=== PATIENT | female | born 1985 | race African-American/Black ===

== ENCOUNTER 2017-02-07 09:52 | Emergency (ER) | payer SELFPAY ==
[2017-02-07] MEDS ORDERED: ACET325T9 PO (10:09)
[2017-02-07] MEDS ORDERED: fentaNYL PF 100 MCG/2 ML VIAL IV PRN (10:45)
[2017-02-07] MEDS ORDERED: IV NORMAL SALINE 1,000ML 1,000 ML IV ONE (10:45)
--- NOTE | 2017-02-07 10:49 | ED.ADGEN ---
Past History Past Medical History: No Pertinent History Past Surgical History: Alcohol Use: None Drug Use: None Adult General HPI HPI Patient is a 31-year-old woman, history of , presents to the emergency department with a complaint of right-sided dental pain and swelling that began last night. Patient denies any fevers, any nausea or vomiting, states that she is unable to tolerate secretions due to pain, also unable over her mouth fully, states the pain is traveling to the entire right side of her face, no sore throat, no rhinorrhea, no ear pain. She did take ibuprofen at home for current the ED. Denies any sore throat, any ear pain, any rhinorrhea. Denies any injuries, any sick contacts or exposures. States that she does have her wisdom teeth and believes this is the source of the problem. Denies similar symptoms previously. States the pain is in both the upper and lower jaw and also the right side of her face. Review of Systems Review of Systems Constitutional: Denies fever or chills [] Eyes: Denies change in visual acuity, redness, or eye pain [] HENT: Denies nasal congestion or sore throat [] right-sided dental/facial pain. Respiratory: Denies cough or shortness of breath [] Cardiovascular: No additional information not addressed in HPI [] GI: Denies abdominal pain, nausea, vomiting, bloody stools or diarrhea [] : Denies dysuria or hematuria [] Musculoskeletal: Denies back pain or joint pain [] Integument: Denies rash or skin lesions [] Neurologic: Denies headache, focal weakness or sensory changes [] Endocrine: Denies polyuria or polydipsia [] Current Medications Current Medications Current Medications Medications (Trade) Dose Ordered Sig/Julissa Start Time Stop Time Status Last Admin Dose Admin Fentanyl Citrate (Fentanyl 2ml Vial) 25 mcg PRN Q15MIN PRN 02/07/17 10:45 02/08/17 10:44 02/07/17 11:27 25 MCG Penicillin V Potassium (Veetid) 500 mg 1X ONCE 02/07/17 12:00 02/07/17 12:01 DC Sodium Chloride 1,000 ml @ 1,000 mls/hr 1X ONCE 02/07/17 10:45 02/07/17 11:44 DC 02/07/17 11:25 1,000 MLS/HR Allergies Allergies Allergies Coded Allergies Type Severity Reaction Last Updated Verified No Known Drug Allergies 02/07/17 No Physical Exam Physical Exam Constitutional: Well developed, well nourished, no acute distress, non-toxic appearance. [] HENT: Normocephalic, atraumatic, bilateral external ears normal, oropharynx moist, no oral exudates, nose normal. Patient is being secretions into a cup, states she is having some bad taste in her mouth, but is unclear, tenderness throughout the upper and lower jaw, although no obvious caries or injury identified, patient with tenderness throughout, is only able to open mouth to 2 fingers, with trismus noted, there is no brawny edema, no swelling of the tongue , no swelling of the submandibular new mucosa, no external lymphadenopathy, patient with tenderness throughout the right cheek, no involvement of the maxillary sinuses. Eyes: PERRLA, EOMI, conjunctiva normal, no discharge. [] Neck: Normal range of motion, no tenderness, supple, no stridor. [] Cardiovascular:Heart rate regular rhythm, no murmur, S1, S2, no rubs or gallops. [] Lungs & Thorax: Bilateral breath sounds clear to auscultation , no wheezing, rhonchi, rales. No chest wall crepitus or tenderness. [] Abdomen: Bowel sounds normal, soft, no tenderness, no rebound, rigidity, no guarding, no masses, no pulsatile masses. [] Skin: Warm, dry, no erythema, no rash. [] Back: No tenderness, no CVA tenderness. [] Extremities: No tenderness, no cyanosis, no clubbing, ROM intact, no edema. [] Neurologic: Alert and oriented X 3, normal motor function, normal sensory function, no focal deficits noted. [] Psychologic: Affect normal, judgement normal, mood normal. [] Current Patient Data Vital Signs Vital Signs Date Time Temp Pulse Resp B/P (MAP) Pulse Ox O2 Delivery O2 Flow Rate FiO2 02/07/17 11:27 88 16 94 02/07/17 11:27 Room Air 02/07/17 09:52 97.9 Lab Results Laboratory Tests Test 02/07/17 10:25 02/07/17 10:45 POC Urine HCG, Qualitative hcg positive (Negative) White Blood Count 12.2 x10^3/uL (4.0-11.0) H Red Blood Count 4.02 x10^6/uL (3.50-5.40) Hemoglobin 11.9 g/dL (12.0-15.5) L Hematocrit 36.2 % (36.0-47.0) Mean Corpuscular Volume 90 fL (79-100) Mean Corpuscular Hemoglobin 30 pg (25-35) Mean Corpuscular Hemoglobin Concent 33 g/dL (31-37) Red Cell Distribution Width 15.1 % (11.5-14.5) H Platelet Count 261 x10^3/uL (140-400) Neutrophils (%) (Auto) 75 % (31-73) H Lymphocytes (%) (Auto) 17 % (24-48) L Monocytes (%) (Auto) 7 % (0-9) Eosinophils (%) (Auto) 1 % (0-3) Basophils (%) (Auto) 0 % (0-3) Neutrophils # (Auto) 9.2 x10^3uL (1.8-7.7) H Lymphocytes # (Auto) 2.1 x10^3/uL (1.0-4.8) Monocytes # (Auto) 0.9 x10^3/uL (0.0-1.1) Eosinophils # (Auto) 0.1 x10^3/uL (0.0-0.7) Basophils # (Auto) 0.0 x10^3/uL (0.0-0.2) Sodium Level 137 mmol/L (136-145) Potassium Level 3.8 mmol/L (3.5-5.1) Chloride Level 104 mmol/L (98-107) Carbon Dioxide Level 23 mmol/L (21-32) Anion Gap 10 (6-14) Blood Urea Nitrogen 5 mg/dL (7-20) L Creatinine 0.8 mg/dL (0.6-1.0) Estimated GFR (Cockcroft-Gault) 84.8 Glucose Level 101 mg/dL (70-99) H Calcium Level 9.7 mg/dL (8.5-10.1) EKG EKG Not indicated. [] Radiology/Procedures Radiology/Procedures [] Course & Med Decision Making Course & Med Decision Making Pertinent Labs and Imaging studies reviewed. (See chart for details) Patient states her last mental period was in September of this year, states she has had regular menses. Patient's hCG urine was positive in the emergency department. I did discuss this with patient, she states that she is "not not surprised" by this finding, and denies any discharge, drainage, abdominal pain, or other related concerns, she does not currently have an [employer] ASS[employer] and is not taking vitamins. Patient with inability to swallow secretions she states due to some pain, unable to open mouth more than one half fingers for examination, cries on examination, concern for possible sialadenitis, versus possible abscess with difficult examination.. I did discuss this with patient, she is agreeable to receiving laboratory studies, pain medication, and imaging in the emergency department to further elucidate her symptoms. CT of the face does not reveal any evidence of stone or abscess, I did discuss with patient who is resting calmly, telemetry studies early acute concerning findings. Patient noted to have likely bone island in the right jaw, discussed with the patient's require further evaluation to rule out any more concerning causes. Patient voices understanding. She states she will be able to establish insurance next week, in the meantime, I patient is given a list of available clinics with whom she can follow additional evaluation. Also covered with oral antibiotics although I did not visualize abscess formation or anything on CT, secondary to patient's symptoms and discomfort. Patient voiced understanding and agreement with plan as stated, discharged home in stable condition after seeing first dose of Biaxin ED without issue. Also given prescription for vitamins and list of available [employer] [facility] providers. Final Impression Final Impression [] Problems: Dragon Disclaimer Dragon Disclaimer This electronic medical record was generated, in whole or in part, using a voice recognition dictation system. Departure: Impression: Primary Impression: Pain, dental Disposition: HOME, SELF-CARE Condition: IMPROVED Scripts Pnv With Ca,No.72/Iron,Carb/Fa ( PLUS IRON TABLET) 1 Each Tablet 1 TAB PO DAILY, #90 TAB 0 Refills Prov: HARRISON APODACA DO 02/07/17 Penicillin V Potassium (PENICILLIN V POTASSIUM) 500 Mg Tablet 1 TAB PO QID, #40 TAB Prov: HARRISON APODACA DO 02/07/17 HARRISON APODACA DO Feb 07, 2017 10:49
[2017-02-07 10:59] LABS: BASO % 0 % (0-3); EOS # 0.1 x10^3/uL (0.0-0.7); EOS % 1 % (0-3); HEMATOCRIT 36.2 % (36.0-47.0); HEMOGLOBIN 11.9 g/dL (12.0-15.5); LYMPH # 2.1 x10^3/uL (1.0-4.8); LYMPH % 17 % (24-48); MEAN CORPUSCULAR HEMOGLOBIN 30 pg (25-35); MEAN CORPUSCULAR HGB CONC 33 g/dL (31-37); MEAN CORPUSCULAR VOLUME 90 fL (79-100); MONO # 0.9 x10^3/uL (0.0-1.1); MONO % 7 % (0-9); NEUT # 9.2 x10^3uL (1.8-7.7); NEUT % 75 % (31-73); PLATELET COUNT 261 x10^3/uL (140-400); RED BLOOD COUNT 4.02 x10^6/uL (3.50-5.40); RED CELL DISTRIBUTION WIDTH 15.1 % (11.5-14.5); WHITE BLOOD COUNT 12.2 x10^3/uL (4.0-11.0)
[2017-02-07 11:05] LABS: CALCIUM 9.7 mg/dL (8.5-10.1); CREATININE 0.8 mg/dL (0.6-1.0); GFR 84.8; POTASSIUM 3.8 mmol/L (3.5-5.1)
--- NOTE | 2017-02-07 11:18 | RAD ---
INDICATION: R sided jaw/facial pain/swelling COMPARISON: None. TECHNIQUE: Axial CT images were obtained through the face without contrast. FINDINGS: Mastoid air cells are well aerated. The mandibular condyles are well situated within the temporomandibular joints. There is a 4-5 mm sclerotic focus at right mandibular condyle. No definite acute fracture of mandible. Zygomatic arches are intact. Maxillary sinus, sphenoid sinus and ethmoid air cells are well aerated. No retro-orbital mass. There are some scattered mildly prominent lymph nodes. IMPRESSION: No definite acute fracture or dislocation. There is a small suspected sclerotic focus within the right mandibular condyle. This has a nonspecific appearance and could be from causes such as a bone island but given the patient's symptoms within the region a follow-up examination could be obtained to ensure no growth to exclude more worrisome but less common neoplastic causes of a sclerotic lesion. PQRS Compliance Statement: One or more of the following individualized dose reduction techniques were utilized for this examination: 1. Automated exposure control 2. Adjustment of the mA and/or kV according to patient size 3. Use of iterative reconstruction technique
[2017-02-07] MEDS ORDERED: PENI500T PO (11:44)
[2017-02-07] MEDS ORDERED: PNV1TABL34 PO (11:46)
[2017-02-07 11:55] VITALS: BP 133/74
[2017-02-07] MEDS ORDERED: PENICILLIN V K 250 MG TABLET. PO ONE (12:00)
== END 2017-02-07 11:55 | disposition home or self-care (01) ==
LOC: ER 09:52
DX: K08.89 Other specified disorders of teeth and supporting structures (principal); R22.0 Localized swelling, mass and lump, head
CPT/HCPCS: 36415; 70486; 80048; 81025; 85027; 96374; 99285; J3010; J7030

== ENCOUNTER 2018-06-05 09:31 | Emergency (ER) | payer OTHER ==
[~2018-06-05] VITALS: Ht 157.5 cm; Wt 77.1 kg
[~2018-06-05 09:31] MED LIST: ACET325T9 PO; PENI500T PO; PNV1TABL34 PO
[2018-06-05 09:39] VITALS: BP 183/100
[2018-06-05] MEDS ORDERED: KETOROLAC 60 MG/2 ML VIAL. IM ONE (10:10)
[2018-06-05] MEDS ORDERED: ORPHENADRINE CITRATE 60 MG/2 ML VIAL. IM ONE (10:10)
[2018-06-05] MEDS ORDERED: BUTORPHANOL 2 MG VIAL. IM ONE (10:10)
--- NOTE | 2018-06-05 10:20 | PHYS DOC ---
Past History Past Medical History: No Pertinent History Past Surgical History: Alcohol Use: None Drug Use: None Adult General Chief Complaint Chief Complaint: BACK PAIN OR INJURY HPI HPI Patient is a 33-year-old female who presents with complaint of lower back pain for the last 4 days. Patient states that she had been lifting some stuff in her house and she started having back pain after that. She was seen over at [facility] 2 days ago and had gotten a couple of shots as well as tramadol and Flexeril. Patient states that symptoms are not improving. She states that she has some radiation of the pain down her left leg. She denies any loss of bowel or bladder control. She also denies any saddle anesthesia. Review of Systems Review of Systems Constitutional: Denies fever or chills [] Respiratory: Denies cough or shortness of breath [] Cardiovascular: No additional information not addressed in HPI [] GI: Denies abdominal pain, nausea, vomiting or diarrhea [] : Denies dysuria or hematuria [] Musculoskeletal: Complains of lower back pain[] Neurologic: Denies loss of bowel or bladder control[] All other systems were reviewed and found to be within normal limits, except as documented in this note. Current Medications Current Medications Current Medications Medications (Trade) Dose Ordered Sig/Julissa Start Time Stop Time Status Last Admin Dose Admin Butorphanol Tartrate (Stadol) 1 mg 1X ONCE 06/05/18 10:10 06/05/18 10:11 DC 06/05/18 10:04 1 MG Ketorolac Tromethamine (Toradol Im) 60 mg 1X ONCE 06/05/18 10:10 06/05/18 10:11 DC 06/05/18 10:03 60 MG Orphenadrine Citrate (Norflex) 60 mg 1X ONCE 06/05/18 10:10 06/05/18 10:11 DC 06/05/18 10:04 60 MG Allergies Allergies Allergies Coded Allergies Type Severity Reaction Last Updated Verified No Known Drug Allergies 02/07/17 No Physical Exam Physical Exam Constitutional: Well developed, well nourished, no acute distress, non-toxic appearance. [] Eyes: PERRLA, EOMI, conjunctiva normal, no discharge. [] Neck: Normal range of motion, no tenderness, supple, no stridor. [] Cardiovascular:Heart rate regular rhythm [] Lungs & Thorax: Bilateral breath sounds clear to auscultation [] Abdomen: Bowel sounds normal, soft. [] Skin: Warm, dry, no erythema, no rash. [] Back: Patient reports tenderness to palpation in the mid to lower lumbar paraspinal musculature bilaterally. No palpable spasm is noted on exam. [] Extremities: No tenderness, no cyanosis, no clubbing, ROM intact, no edema. [] Neurologic: Alert and oriented X 3, normal motor function, normal sensory function, no focal deficits noted. [] Current Patient Data Vital Signs Vital Signs Date Time Temp Pulse Resp B/P (MAP) Pulse Ox O2 Delivery O2 Flow Rate FiO2 06/05/18 10:04 18 06/05/18 09:39 106 96 Room Air EKG EKG [] Radiology/Procedures Radiology/Procedures [] Course & Med Decision Making Course & Med Decision Making Pertinent Labs and Imaging studies reviewed. (See chart for details) Patient seen and evaluated and given IM doses of Toradol, Norflex and Stadol. Patient reevaluated and reports improvement in symptoms at this time. Patient instructed to follow-up with her primary provider in the next few days. Dragon Disclaimer Dragon Disclaimer This electronic medical record was generated, in whole or in part, using a voice recognition dictation system. Departure Departure: Impression: Primary Impression: Acute low back pain Disposition: 01 HOME, SELF-CARE Condition: STABLE Referrals: PCPISAÍAS (PCP) Patient Instructions: Back Pain, Adult, Sciatica Additional Instructions: Continue taking pain medications already prescribed. Problem Qualifiers Primary Impression: Acute low back pain Back pain laterality: bilateral Sciatica presence: with sciatica Sciatica laterality: sciatica of right side Qualified Codes: M54.41 - Lumbago with sciatica, right side MAGO FLORES Jr. DO Jun 05, 2018 10:20
== END 2018-06-05 11:05 | disposition home or self-care (01) ==
LOC: ER 09:31
DX: M54.41 Lumbago with sciatica, right side (principal); Z98.890 Other specified postprocedural states; X50.0XXA Overexertion from strenuous movement or load, initial encounter; Y93.89 Activity, other specified; Y92.098 Other place in other non-institutional residence as the place of occurrence of the external cause; Y99.8 Other external cause status
CPT/HCPCS: 96372; 99284; J0595; J1885; J2360

== ENCOUNTER 2018-08-26 16:46 | Emergency (ER) | payer OTHER ==
[~2018-08-26] VITALS: Ht 144.8 cm; Wt 71.7 kg
[2018-08-26] MEDS ORDERED: IV NORMAL SALINE 1,000ML 1,000 ML IV SCH (16:58)
[2018-08-26 17:23] LABS: BASO % 1 % (0-3); EOS % 0 % (0-3); HEMATOCRIT 34.9 % (36.0-47.0); HEMOGLOBIN 11.2 g/dL (12.0-15.5); LYMPH # 1.8 x10^3/uL (1.0-4.8); LYMPH % 21 % (24-48); MEAN CORPUSCULAR HEMOGLOBIN 26 pg (25-35); MEAN CORPUSCULAR HGB CONC 32 g/dL (31-37); MEAN CORPUSCULAR VOLUME 81 fL (79-100); MONO # 1.3 x10^3/uL (0.0-1.1); MONO % 15 % (0-9); NEUT # 5.3 x10^3uL (1.8-7.7); NEUT % 63 % (31-73); PLATELET COUNT 313 x10^3/uL (140-400); RED BLOOD COUNT 4.29 x10^6/uL (3.50-5.40); RED CELL DISTRIBUTION WIDTH 20.5 % (11.5-14.5); WHITE BLOOD COUNT 8.5 x10^3/uL (4.0-11.0)
[2018-08-26] MEDS ORDERED: ONDANSETRON PF 4 MG/2 ML VIAL. IV ONE (17:25)
--- NOTE | 2018-08-26 17:28 | PHYS DOC ---
Past History Past Medical History: No Pertinent History (EMMANUEL TESFAYE MD) Past Surgical History: (EMMANUEL TESFAYE MD) Alcohol Use: None Drug Use: None (EMMANUEL TESFAYE MD) Adult General Chief Complaint Chief Complaint: FLANK PAIN HPI HPI Patient is a 33 year old female who presents with pain in of bilateral flank pain. Patient complaining of bilateral flank pain that is more in the right side for the last 5 days as a constant pain that getting worse with movement and urination. Patient complaining of subjective fever for the last few days with urinary frequency without dysuria. Patient complaining of nausea without vomiting, diarrhea, vaginal bleeding or . Patient states she had sore throat and nasal congestion and mild cough. Patient did not have sick contact. Patient was seen at urgent care and had urine dipstick with leukocyte and because of fever was sent to ER for evaluation of pyelonephritis. (EMMANUEL TESFAYE MD) Review of Systems Review of Systems Constitutional: Reports fever Eyes: Denies change in visual acuity, redness, or eye pain [] HENT: Reports nasal congestion and sore throat Respiratory: Denies cough or shortness of breath [] Cardiovascular: No additional information not addressed in HPI [] GI: Denies abdominal pain, nausea, vomiting, bloody stools or diarrhea [] : Reports urinary frequency and flank pain Musculoskeletal: Denies back pain or joint pain [] Integument: Denies rash or skin lesions [] Neurologic: Denies headache, focal weakness or sensory changes [] Endocrine: Denies polyuria or polydipsia [] All other systems were reviewed and found to be within normal limits, except as documented in this note. (EMMANUEL TESFAYE MD) Current Medications Current Medications Current Medications Medications (Trade) Dose Ordered Sig/Julissa Start Time Stop Time Status Last Admin Dose Admin Ketorolac Tromethamine (Toradol 30mg Vial) 30 mg 1X ONCE 08/26/18 17:30 08/26/18 17:31 UNV Ondansetron HCl (Zofran) 4 mg 1X ONCE 08/26/18 17:25 08/26/18 17:26 Sodium Chloride 1,000 ml @ 1,000 mls/hr Q1H 08/26/18 16:58 08/26/18 17:57 (EMMANUEL TESFAYE MD) Allergies Allergies Allergies Coded Allergies Type Severity Reaction Last Updated Verified No Known Drug Allergies 02/07/17 No (EMMANUEL TESFAYE MD) Physical Exam Physical Exam Constitutional: Well developed, well nourished, moderate acute distress, non- toxic appearance, febrile, temperature 101.7. [] HENT: Normocephalic, atraumatic, , oropharynx moist, no oral exudates, nose normal. [] Eyes: PERRLA, EOMI, conjunctiva normal, no discharge. [] Neck: Normal range of motion, no tenderness, supple, no stridor. [] Cardiovascular: Sinus tachycardia, no murmur [] Lungs & Thorax: Bilateral breath sounds clear to auscultation [] Abdomen: Bowel sounds normal, soft, right upper quadrant tenderness and rebound tenderness, mild right lower quadrant, no masses, no pulsatile masses. [] Skin: Warm, dry, no erythema, no rash. [] Back: No tenderness, right CVA tenderness. [] Extremities: No tenderness, no cyanosis, no clubbing, ROM intact, no edema. [] Neurologic: Alert and oriented X 3, normal motor function, normal sensory function, no focal deficits noted. [] Psychologic: Affect normal, judgement normal, mood normal. [] (EMMANUEL TESFAYE MD) EKG EKG [] (EMMANUEL TESFAYE MD) Radiology/Procedures Radiology/Procedures [] (EMMANUEL TESFAYE MD) Impressions: Ultrasound the abdomen limited. HISTORY: Right upper quadrant tenderness, right flank pain Ultrasound was used to evaluate the right upper quadrant of the abdomen. Pancreas was normal in appearance. Aorta and vena cava were unremarkable. Gallbladder was normal without gallstones or gallbladder wall thickening. Liver is normal in size and appearance. Common duct was normal measuring 3 mm. Right kidney was 12 cm in length without a mass or hydronephrosis. IMPRESSION: 1. Normal ultrasound of the liver, gallbladder and right upper quadrant. Electronically signed by: Mark Dominguez MD (08/26/2018 7:14 PM) [facility] DICTATED AND SIGNED BY: MARK DOMINGUEZ MD DATE: 08/26/181912 CC: DESIRE CHRIS DO; EMMANUEL TESFAYE MD; PCP,NO CT abdomen and pelvis without contrast. Record right-sided kidney stone, concern for pyelonephritis, right-sided abdominal and flank pain, nausea and vomiting CT scan of the abdomen and pelvis was done without contrast. Lung bases are clear. There is no effusion. Liver is normal in appearance except for focal fatty infiltration at the falciform ligament. Spleen and adrenal glands are normal. Pancreas is normal. Left kidney is normal without a mass or hydronephrosis. There is no perinephric stranding about the right kidney. There is mild dilatation the right renal collecting system. A renal calculus is not identified. A ureteral calculus is not identified. Pyelonephritis is certainly a consideration but difficult to confirm without contrast. There is no bowel obstruction. Uterus and ovaries are normal. Appendix is normal. IMPRESSION: 1. Mild dilatation the right renal collecting system. 2. A renal calculus is not identified. 3. Mild perinephric stranding about the right kidney which could be related to a previous obstruction or pyelonephritis. PQRS Compliance Statement: One or more of the following individualized dose reduction techniques were utilized for this examination: 1. Automated exposure control 2. Adjustment of the mA and/or kV according to patient size 3. Use of iterative reconstruction technique Electronically signed by: Mark Dominguez MD (08/26/2018 9:57 PM) [facility] DICTATED AND SIGNED BY: MARK DOMINGUEZ MD DATE: 08/26/182150 CC: DESIRE CHRIS DO; PCP,NO ~ (DESIRE CHRIS DO) Course & Med Decision Making Course & Med Decision Making Pertinent Labs and Imaging are pending. Evaluation of patient in ER showed 33-year-old female patient presented to ER with complaining of bilateral flank pain. Patient had temperature of 101.7. Patient had right upper quadrant tenderness. Labs and ultrasound is pending. Patient care transferred to Dr. Chris at 1800. (EMMANUEL TESFAYE MD) Course & Med Decision Making Patient's right upper quadrant sound is unremarkable. I have ordered a CT to rule out a kidney stone. Repeat urinalysis here is pending. Her other labs are unremarkable. Her influenza is negative. The patient's repeat urinalysis is significant for urinary tract infection. Given the patient's fever on arrival we 'll treat this as a complicated urinary tract infection. We'll give her 1 g of Rocephin. Her CT scan is still pending. There is some slight dilation of the right kidney collecting system, but no stone. There is some perinephric stranding. I have treated the patient with Rocephin in the ED and I will discharge her with cefdinir 300 mg orally twice a day for 10 days. If her condition worsens, she'll return to the emergency room. She is stable for discharge at this time. (DESIRE CHRIS DO) Dragon Disclaimer Dragon Disclaimer This electronic medical record was generated, in whole or in part, using a voice recognition dictation system. (EMMANUEL TESFAYE MD) Departure Departure: Impression: Primary Impression: Right upper quadrant abdominal pain Additional Impressions: Bilateral flank pain Fever Pyelonephritis Disposition: HOME, SELF-CARE Condition: STABLE Referrals: PCP,NO (PCP) Patient Instructions: Pyelonephritis, Adult, [id number] Scripts Cefdinir (CEFDINIR) 300 Mg Capsule 1 CAP PO BID for kidney infection, #20 CAP Prov: DESIRE CHRIS DO 08/26/18 Problem Qualifiers Additional Impressions: Fever Fever type: due to other condition Qualified Codes: R50.81 - Fever presenting with conditions classified elsewhere EMMANUEL TESFAYE MD Aug 26, 2018 17:28 DESIRE CHRIS DO Aug 26, 2018 19:25
[2018-08-26] MEDS ORDERED: KETOROLAC 30 MG/ML VIAL. IV ONE (17:45)
[2018-08-26 17:47] LABS: ALBUMIN 3.5 g/dL (3.4-5.0); ALBUMIN/GLOBULIN RATIO 0.7 (1.0-1.7); CALCIUM 9.4 mg/dL (8.5-10.1); CREATININE 0.9 mg/dL (0.6-1.0); GFR 88.4; TOTAL BILIRUBIN 0.4 mg/dL (0.2-1.0); TOTAL PROTEIN 8.2 g/dL (6.4-8.2)
[2018-08-26 17:50] LABS: POTASSIUM 2.7 mmol/L (3.5-5.1)
[2018-08-26 18:16] LABS: INFLUENZA A PATIENT NEGATIVE (NEGATIVE)
[2018-08-26 18:17] LABS: INFLUENZA B PATIENT NEGATIVE (NEGATIVE)
[2018-08-26 18:30] LABS: ANISOCYTOSIS MOD; HYPOCHROMIA SLIGHT; PLT ESTIMATE INCREASED (ADEQUATE); TARGET CELLS FEW; TEAR DROP CELLS FEW
[2018-08-26] MEDS ORDERED: POTASSIUM CHLORIDE 20 MEQ TABLET.ER. PO ONE (18:30)
[2018-08-26 18:31] LABS: STOMATOCYTES FEW
--- NOTE | 2018-08-26 19:19 | RAD ---
Ultrasound the abdomen limited. HISTORY: Right upper quadrant tenderness, right flank pain Ultrasound was used to evaluate the right upper quadrant of the abdomen. Pancreas was normal in appearance. Aorta and vena cava were unremarkable. Gallbladder was normal without gallstones or gallbladder wall thickening. Liver is normal in size and appearance. Common duct was normal measuring 3 mm. Right kidney was 12 cm in length without a mass or hydronephrosis. IMPRESSION: 1. Normal ultrasound of the liver, gallbladder and right upper quadrant. Electronically signed by: Mark Dominguez MD (08/26/2018 7:14 PM) [facility]
[2018-08-26 19:35] LABS: BILIRUBIN,URINE NEG (NEG); CLARITY,URINE CLOUDY; COLOR,URINE STRAW; GLUCOSE,URINE NEG (NEG); NITRITE,URINE POS (NEG); UROBILINOGEN,URINE 0.2 mg/dL (0.2 mg/dL); WBC,URINE TNTC /HPF (0-4)
[2018-08-26 19:36] LABS: BACTERIA,URINE MOD /HPF (0-FEW); SQUAMOUS EPITHELIAL CELL,UR OCC /LPF
[2018-08-26] MEDS ORDERED: cefTRIAXone SODIUM 1 GM VIAL ONE (21:07)
[2018-08-26] MEDS ORDERED: IV NORMAL SALINE 50ML 50 ML ONE (21:08)
--- NOTE | 2018-08-26 22:02 | RAD ---
CT abdomen and pelvis without contrast. Record right-sided kidney stone, concern for pyelonephritis, right-sided abdominal and flank pain, nausea and vomiting CT scan of the abdomen and pelvis was done without contrast. Lung bases are clear. There is no effusion. Liver is normal in appearance except for focal fatty infiltration at the falciform ligament. Spleen and adrenal glands are normal. Pancreas is normal. Left kidney is normal without a mass or hydronephrosis. There is no perinephric stranding about the right kidney. There is mild dilatation the right renal collecting system. A renal calculus is not identified. A ureteral calculus is not identified. Pyelonephritis is certainly a consideration but difficult to confirm without contrast. There is no bowel obstruction. Uterus and ovaries are normal. Appendix is normal. IMPRESSION: 1. Mild dilatation the right renal collecting system. 2. A renal calculus is not identified. 3. Mild perinephric stranding about the right kidney which could be related to a previous obstruction or pyelonephritis. PQRS Compliance Statement: One or more of the following individualized dose reduction techniques were utilized for this examination: 1. Automated exposure control 2. Adjustment of the mA and/or kV according to patient size 3. Use of iterative reconstruction technique Electronically signed by: Mark Dominguez MD (08/26/2018 9:57 PM) [facility]
[2018-08-26] MEDS ORDERED: CEFD300C PO (22:18)
[2018-08-26 22:20] VITALS: BP 160/98
== END 2018-08-26 22:20 | disposition home or self-care (01) ==
LOC: ER 16:46
DX: N12 Tubulo-interstitial nephritis, not specified as acute or chronic (principal); R50.81 Fever presenting with conditions classified elsewhere; N39.0 Urinary tract infection, site not specified; N28.89 Other specified disorders of kidney and ureter; Z98.890 Other specified postprocedural states
CPT/HCPCS: 36415; 74176; 76705; 80053; 81001; 81025; 83605; 83690; 85025; 87804; 96365; 96375; 99284; J0696; J1885; J2405; 87086; 87186; J7030

== ENCOUNTER 2018-12-24 08:44 | Emergency (ER) | payer OTHER ==
[~2018-12-24] VITALS: Ht 144.8 cm; Wt 71.7 kg
[~2018-12-24 08:44] MED LIST changes: +CEFD300C PO
--- NOTE | 2018-12-24 09:09 | PHYS DOC ---
Past History Past Medical History: No Pertinent History Past Surgical History: Smoking: Cigarettes Additional Smoking Information: 07/22 PPD Alcohol Use: Heavy Additional Alcohol Information: 1L RUM PER WEEK Drug Use: Marijuana Adult General Chief Complaint Chief Complaint: HYPERTENSION HPI HPI Patient is a 33-year-old female who presents to the emergency department for evaluation. She states that for the past month or so, she has been checking her blood pressure regularly at home, and her blood pressure has been running high, usually in the 170s over 100 range. She states she checked it yesterday at home and it was 198/110. She call to schedule a new primary care physician appointment for today, which is scheduled at about 4 PM, but was told due to the elevation in her blood pressure she needs to come to the emergency department for evaluation. She denies any headache or vision changes, numbness or weakness. She does admit to having had some chest pain on and off for the past several weeks, along with a cough, which is nonproductive. She is a smoker, and does exhibit wheezing on exam. She has never been diagnosed or treated for hypert ension in the past. She does not think she is , her LMP was November 18. There are no alleviating or exacerbating factors to her symptoms otherwise. Review of Systems Review of Systems Constitutional: Denies fever or chills [] Eyes: Denies change in visual acuity, redness, or eye pain [] HENT: Denies nasal congestion or sore throat [] Respiratory: Reports cough.[] Cardiovascular: No additional information not addressed in HPI [] GI: Denies abdominal pain, nausea, vomiting, bloody stools or diarrhea [] : Denies dysuria or hematuria [] Musculoskeletal: Denies back pain or joint pain [] Integument: Denies rash or skin lesions [] Neurologic: Denies headache, focal weakness or sensory changes [] Endocrine: Denies polyuria or polydipsia [] All other systems were reviewed and found to be within normal limits, except as documented in this note. Current Medications Current Medications Current Medications Medications (Trade) Dose Ordered Sig/Julissa Start Time Stop Time Status Last Admin Dose Admin Albuterol/ Ipratropium (Duoneb) 3 ml 1X ONCE 12/24/18 09:15 12/24/18 09:16 UNV Allergies Allergies Allergies Coded Allergies Type Severity Reaction Last Updated Verified No Known Drug Allergies 02/07/17 No Physical Exam Physical Exam PHYSICAL EXAM: CONSTITUTIONAL: Well developed, well nourished HEAD: normocephalic, atraumatic EENT: PERRL, EOMI. Conjunctivae normal color, sclerae non-icteric; moist mucous membranes. NECK: Supple, non-tender; no meningismus. LUNGS: Coarse wheezes scattered throughout all lung henderson, breathing even and unlabored. Normal air movement. HEART: Regular rate and rhythm, no murmur CHEST: No deformity; non-tender ABDOMEN: The abdomen is soft, and non-tender, no masses or bruits. EXTREM: Normal ROM; no deformity, no calf tenderness. Normal pulses palpable in all extremities. There is no pedal edema. SKIN: No rash; no diaphoresis NEURO: Alert; normal speech and cognition; CN's grossly intact; strength grossly intact without focal deficit. BACK: No CVA TTP. Current Patient Data Vital Signs Vital Signs Date Time Temp Pulse Resp B/P (MAP) Pulse Ox O2 Delivery O2 Flow Rate FiO2 12/24/18 08:58 98.1 111 20 97 Room Air 12/24/18 08:57 163/108 (126) Lab Results Laboratory Tests Test 12/24/18 09:09 12/24/18 09:23 White Blood Count 5.8 x10^3/uL Red Blood Count 4.99 x10^6/uL Hemoglobin 13.3 g/dL Hematocrit 41.4 % Mean Corpuscular Volume 83 fL Mean Corpuscular Hemoglobin 27 pg Mean Corpuscular Hemoglobin Concent 32 g/dL Red Cell Distribution Width 22.2 % Platelet Count 286 x10^3/uL Neutrophils (%) (Auto) 36 % Lymphocytes (%) (Auto) 48 % Monocytes (%) (Auto) 10 % Eosinophils (%) (Auto) 3 % Basophils (%) (Auto) 3 % Neutrophils # (Auto) 2.1 x10^3uL Lymphocytes # (Auto) 2.8 x10^3/uL Monocytes # (Auto) 0.6 x10^3/uL Eosinophils # (Auto) 0.2 x10^3/uL Basophils # (Auto) 0.2 x10^3/uL Sodium Level 137 mmol/L Potassium Level 4.3 mmol/L Chloride Level 102 mmol/L Carbon Dioxide Level 22 mmol/L Anion Gap 13 Blood Urea Nitrogen 15 mg/dL Creatinine 0.7 mg/dL Estimated GFR (Cockcroft-Gault) 118.1 Glucose Level 89 mg/dL Calcium Level 9.9 mg/dL Troponin I Quantitative < 0.017 ng/mL Bedside Urine HCG, Qualitative hcg negative Current Medications Medications (Trade) Dose Ordered Sig/Julissa Route PRN Reason Start Time Stop Time Status Last Admin Dose Admin Albuterol/ Ipratropium (Duoneb) 3 ml 1X ONCE NEB 12/24/18 09:30 12/24/18 09:31 DC 12/24/18 09:29 EKG EKG Normal sinus rhythm at a rate of 89 beats for minute, normal axis, normal intervals, nonspecific ST/T changes in lead aVL only, there are otherwise no acute ischemic ST/T changes.[] Radiology/Procedures Radiology/Procedures [PROCEDURE: CHEST PA & LATERAL Chest, PA and Lateral: Technique: PA and lateral views of the chest were obtained. History: Hypertension, cough. Comparison: None. Findings: The heart and pulmonary vasculature appear within normal limits. The lungs are clear. The pleural margins are clear. Impression: No acute chest process is seen. ] Course & Med Decision Making Course & Med Decision Making Pertinent Labs and Imaging studies reviewed. (See chart for details) []10:00 AM:Patient remains stable. I discussed test results, the need for close follow-up, and return precautions. Instructed the patient of the importance of keeping her appointments afternoon for definitive blood pressure management, avoiding smoking cessation was discussed as well. Dragon Disclaimer Dragon Disclaimer This electronic medical record was generated, in whole or in part, using a voice recognition dictation system. Departure Departure: Impression: Primary Impression: Hypertension Additional Impression: Wheezing Disposition: 01 HOME, SELF-CARE Condition: STABLE Referrals: ASHWIN RUELAS PA-C (PCP) Patient Instructions: Hypertension, Smoking Cessation Scripts Lisinopril (LISINOPRIL) 10 Mg Tablet 1 TAB PO DAILY for -, #30 TAB 0 Refills Prov: MIHAELA MILLS MD 12/24/18 Albuterol Sulfate (PROAIR HFA INHALER) 8.5 Gm Hfa.aer.ad 1 PUFF INH PRN Q6HRS PRN for SHORTNESS OF BREATH, #1 INHALER 0 Refills Prov: MIHAELA MILLS MD 6/6/19 Problem Qualifiers MIHAELA MILLS MD Dec 24, 2018 09:09
[2018-12-24 09:22] LABS: BASO # 0.2 x10^3/uL (0.0-0.2); BASO % 3 % (0-3); EOS # 0.2 x10^3/uL (0.0-0.7); EOS % 3 % (0-3); HEMATOCRIT 41.4 % (36.0-47.0); HEMOGLOBIN 13.3 g/dL (12.0-15.5); LYMPH # 2.8 x10^3/uL (1.0-4.8); LYMPH % 48 % (24-48); MEAN CORPUSCULAR HEMOGLOBIN 27 pg (25-35); MEAN CORPUSCULAR HGB CONC 32 g/dL (31-37); MEAN CORPUSCULAR VOLUME 83 fL (79-100); MONO # 0.6 x10^3/uL (0.0-1.1); MONO % 10 % (0-9); NEUT # 2.1 x10^3uL (1.8-7.7); NEUT % 36 % (31-73); PLATELET COUNT 286 x10^3/uL (140-400); RED BLOOD COUNT 4.99 x10^6/uL (3.50-5.40); RED CELL DISTRIBUTION WIDTH 22.2 % (11.5-14.5); WHITE BLOOD COUNT 5.8 x10^3/uL (4.0-11.0)
--- NOTE | 2018-12-24 09:24 | EKG ---
[address] [address] Test Date: 2018-12-24 Test Time: 09:23:31 Pat Name: ROLANDO DEMPSEY Department: Room: Gender: F Investigation Manager: LJ : 1985 Requested By: MIHAELA MILLS Order Number: [id number] Reading MD: Measurements Intervals Caro Rate: 89 P: 42 AK: 126 QRS: 44 QRSD: 84 T: 70 QT: 360 QTc: 439 Interpretive Statements SINUS RHYTHM QRS(T) CONTOUR ABNORMALITY CONSIDER ANTEROSEPTAL MYOCARDIAL DAMAGE T ABNORMALITY IN HIGH LATERAL LEADS ABNORMAL ECG RI6.01 No previous ECG available for comparison
[2018-12-24 09:27] LABS: CALCIUM 9.9 mg/dL (8.5-10.1); CREATININE 0.7 mg/dL (0.6-1.0); GFR 118.1; POTASSIUM 4.3 mmol/L (3.5-5.1)
[2018-12-24] MEDS ORDERED: IPRATRPIUM/ALBUTEROL 0.5/2.5MG 3 ML NEBU. NEB ONE (09:30)
--- NOTE | 2018-12-24 09:37 | RAD ---
Chest, PA and Lateral: Technique: PA and lateral views of the chest were obtained. History: Hypertension, cough. Comparison: None. Findings: The heart and pulmonary vasculature appear within normal limits. The lungs are clear. The pleural margins are clear. Impression: No acute chest process is seen. Electronically signed by: Clem Goodwin MD (12/24/2018 9:34 AM) [facility]
[2018-12-24] MEDS ORDERED: LISI10TA2 PO (10:03)
[2018-12-24] MEDS ORDERED: ALBU2.5V8 INH (10:03)
[2018-12-24 10:04] VITALS: BP 147/88
[2018-12-24 10:50] LABS: ANISOCYTOSIS MOD; HYPOCHROMIA SLIGHT; MICROCYTOSIS PRESENT; PLT ESTIMATE ADEQUATE (ADEQUATE); STOMATOCYTES OCC
== END 2018-12-24 10:08 | disposition home or self-care (01) ==
LOC: ER 08:44
DX: I10 Essential (primary) hypertension (principal); R06.2 Wheezing; F17.210 Nicotine dependence, cigarettes, uncomplicated; F10.20 Alcohol dependence, uncomplicated; Y90.9 Presence of alcohol in blood, level not specified
CPT/HCPCS: 36415; 71046; 80048; 81025; 84484; 85025; 93005; 94640; 99285; J7620